=== PATIENT | female | born 1965 | race Two or more races ===

== ENCOUNTER 2020-02-24 08:01 | Outpatient (CLI) | payer OTHER | END 2020-02-24 08:06 | disposition home or self-care (01) | LOC: LAB 08:01 | DX: R68.89 Other general symptoms and signs (principal); E78.00 Pure hypercholesterolemia, unspecified; I11.9 Hypertensive heart disease without heart failure; R31.29 Other microscopic hematuria; E03.8 Other specified hypothyroidism; E11.9 Type 2 diabetes mellitus without complications; L93.0 Discoid lupus erythematosus ==

== ENCOUNTER → 2020-04-12 08:45 | Outpatient (CLI) | payer OTHER | END | disposition home or self-care (01) | LOC: LAB 08:45 | PROVIDERS: ATTEND Radiology Diagnostic Radiology | DX: R10.33 Periumbilical pain (principal) ==

== ENCOUNTER → 2020-10-05 06:48 | Outpatient (CLI) | payer OTHER | END | disposition home or self-care (01) | LOC: LAB 06:48 | PROVIDERS: ATTEND Internal Medicine | DX: M32.10 Systemic lupus erythematosus, organ or system involvement unspecified (principal); I10 Essential (primary) hypertension; E11.9 Type 2 diabetes mellitus without complications; E55.9 Vitamin D deficiency, unspecified ==